=== PATIENT | female | born 1960 | race Caucasian/White ===

== ENCOUNTER → 2020-03-27 14:33 | Outpatient (CLI) | payer BC, SELFPAY ==
[2020-03-27] MEDS: COVID-19 VACC #1, MRNA(MOD) 100 MCG/0.5 ML VIAL IM (14:39)
== END ==
PROVIDERS: PCP Nurse Practitioner; Visit Provider Internal Medicine
DX: Z23 Encounter for immunization (principal)
CPT/HCPCS: 0011A; 91301

== ENCOUNTER → 2020-04-24 14:32 | Outpatient (CLI) | payer BC, SELFPAY ==
[2020-04-24] MEDS: COVID-19 VACC #2, MRNA(MOD) 100 MCG/0.5 ML VIAL IM (14:39)
== END ==
PROVIDERS: PCP Nurse Practitioner; Visit Provider Internal Medicine
DX: Z23 Encounter for immunization (principal)
CPT/HCPCS: 0012A; 91301

== ENCOUNTER 2024-06-17 02:40 | Emergency (ER) | payer BC, SELFPAY ==
[2024-06-17] VITALS (8 sets, daily range): BP systolic 173–178; BP diastolic 70–89; PULSE 105–119; RESP 18; TEMP 37.1; O2SAT 96–100; BMI 30.5
--- NOTE | 2024-06-17 03:05 | ED.GENADULT ---
HPI - General Adult General Chief complaint: Upper Respiratory Symptoms Stated complaint: stuff came up wile sleeping HX Asthma Time Seen by Provider: 06/17/24 02:49 Source: patient Mode of arrival: Ambulatory History of Present Illness HPI narrative: 63-year-old woman with a history of asthma, hypertension, depression presents after having an aspiration episode while sleeping. She describes having some spicy food bit of reflux when she went to bed, noticed a bit of reflux and acid taste in her mouth and then had severe coughing spasms such that she could not even use her inhaler. She comes in afraid to speak because it triggers the cough, she is slightly tachycardic, anxious but saturations on room air are 100%. She states she was in her usual state of good health prior to going to bed this evening, no recent fevers, cough, chills no asthma exacerbations no chest pain or palpitations no nausea vomiting or diarrhea. She blames this ?all on the nachos?. Related Data Home Medications Medication Instructions Recorded Confirmed magnesium 1 tab PO .QD 03/20/19 omega 2-lro-ynq-fish oil 1,000 mg 1 cap PO BID 03/20/19 03/20/19 (120 mg-180 mg) capsule (Fish Oil) vitamin K2 40 mcg tablet 40 mcg PO DAILY 03/20/19 03/20/19 albuterol sulfate 90 mcg/actuation 2 puff inhalation Q4HR PRN 06/17/24 06/17/24 aerosol inhaler Shortness Of Breath Or Wheezing amlodipine 10 mg tablet 10 mg PO DAILY 06/17/24 06/17/24 aspirin 81 mg tablet,delayed 81 mg PO DAILY 06/17/24 06/17/24 release fluoxetine 40 mg capsule 40 mg PO DAILY 06/17/24 06/17/24 fluticasone 250 mcg-salmeterol 50 1 ea inhalation BID 06/17/24 06/17/24 mcg/dose blistr powdr for inhalation hydrochlorothiazide 25 mg tablet 25 mg PO DAILY 06/17/24 06/17/24 lisinopril 40 mg tablet 40 mg PO DAILY 06/17/24 06/17/24 Previous Rx's Medication Instructions Recorded potassium chloride 20 mEq 20 meq PO BID #60 tabs 12/04/20 tablet,extended release Allergies Allergy/AdvReac Type Severity Reaction Status Date / Time No Known Drug Allergies Allergy Unverified 03/20/19 11:37 Review of Systems Review of Systems Narrative: Pertinent positive and negative findings as per HPI Patient History Medical History (Updated 06/17/24 @ 03:53 by Shaye Sebastian MD) ADHD Chicken pox (~1972) Depression with anxiety Asthma Seasonal allergies Obesity (BMI 30.0-34.9) Hypertension Surgical History Anesthesia Status post breast reduction (~1994) Family History Father Respiratory failure Mother History of heart disease Hypertension Hyperlipidemia Smoking Status: Former smoker Alcohol type: wine Exam Initial Vital Signs Initial Vital Signs: Vital Signs Temperature 98.7 F 06/17/24 02:56 Pulse Rate 119 H 06/17/24 02:56 Respiratory Rate 18 06/17/24 02:56 Blood Pressure 178/89 H 06/17/24 02:56 Pulse Oximetry 98 06/17/24 02:56 Oxygen Delivery Method Room Air 06/17/24 02:56 General: Healthy appearing, anxious, whispering and trying not to take a deep breath but no accessory muscle use HEENT: Moist mucous membranes, normal sclera with reactive pupils, Respiratory: Lungs with minor scattered wheeze in the upper lung garcia, no rhonchi, Full and symmetrical air movement Cardiac: Tachycardic but otherwise Regular rate and rhythm no murmurs no bruits Abdomen: Soft, nontender, no rebound or guarding, no flank pain Skin: Warm and dry, no rashes Neurologic: Grossly neurologically intact with no obvious asymmetries or abnormalities Extremities: No trauma, well perfused Psych: Cooperative, appropriate insight and affect Course Vital Signs Vital signs: Vital Signs - 8 hr 06/17/24 02:56 Temperature 98.7 F Pulse Rate 119 H Respiratory Rate 18 Blood Pressure 178/89 H Pulse Oximetry 98 Oxygen Delivery Method Room Air Medical Decision Making [facility] Narrative Medical decision making narrative: CC: Aspiration episode this evening Complicating co-morbidities: Nachos heavily seasoned with tacos seasoning prior to going to bed, mild intermittent asthma, hypertension Data collected from: patient Differential considered: Acute coronary syndrome, complete aspiration, severe asthma attack, pneumothorax Exam documented above, pertinent findings include: Patient is anxious, she is still moving air well free to take a deep breath because it triggers coughing reflex. She is mildly tachycardic but no murmurs are appreciated Lab Test results independently reviewed as above. Pertinent findings: CBC is unremarkable Chemistries are reassuring. No acute renal dysfunction, slightly elevated ALT at 41 and alk-phos at 158 Troponin is unremarkable Independently reviewed EKG: Sinus tachycardia at a rate of 107 with nonspecific T-wave changes but no acute ischemia Imaging studies independently reviewed: No acute infiltrates, pulmonary nodule in the left chest Treatments: DuoNeb, Solu-Medrol, fluids Discussion: 63-year-old woman has what seems like a aspiration episode triggered a significant laryngospasm episode. She has responded nicely to DuoNeb, fluids and Solu-Medrol. Workup does not suggest alternate explanation for her symptoms such as pneumothorax, pulmonary infiltrate, acute coronary syndrome, acute congestive heart failure. We discussed laryngospasm, reflux, avoiding foods that are going to cause reflux close to bedtime. She came in with her albuterol metered-dose inhaler but has never used a spacer with it. Spacer and spacer teaching were provided today Discharge Plan Departure Patient Disposition: Home Clinical Impression: Laryngospasm Acid reflux Qualifiers: Esophagitis presence: esophagitis presence not specified Qualified Code(s): K21.9 - Gastro-esophageal reflux disease without esophagitis Mild intermittent asthma Qualifiers: Asthma complication type: uncomplicated Qualified Code(s): J45.20 - Mild intermittent asthma, uncomplicated Activity Restrictions/Additional Instructions: Thank you for coming in today It is terrifying when you can not breathe. It sounds like you had a little bit of acid reflux with a small amount of acid getting into the upper portion of your lungs which caused severe spasm in the upper part of your lungs. I did look for alternative explanations such as heart attack or heart attack like syndrome, collapsed lung, pneumonia and your remaining workup was quite reassuring In the emergency department you were given a DuoNeb to help reduce some of the upper airway inflammation. A L of fluid, steroids and were provided with a spacer so that your metered-dose inhaler albuterol can be more effective for you There was nothing further that you need to do at this time. If you find that you are getting worse or develop any new symptoms, please feel free to return to the emergency department for further evaluation. Prescriptions: No Action potassium chloride 20 mEq tablet extended release 20 meq PO BID Qty: 60 0RF Rx Instructions: Fasting labs due prior to next refill. omega 9-gwk-azm-fish oil [Fish Oil] 1,000 mg (120 mg-180 mg) capsule 1 cap PO BID magnesium 1 tab PO .QD vitamin K2 40 mcg tablet 40 mcg PO DAILY fluoxetine 40 mg capsule 40 mg PO DAILY fluticasone propion-salmeterol 250-50 mcg/dose blister with device 1 ea inhalation BID amlodipine 10 mg tablet 10 mg PO DAILY hydrochlorothiazide 25 mg tablet 25 mg PO DAILY albuterol sulfate 90 mcg/actuation HFA aerosol inhaler 2 puff inhalation Q4HR PRN (Reason: Shortness Of Breath Or Wheezing) aspirin 81 mg tablet,delayed release (DR/EC) 81 mg PO DAILY lisinopril 40 mg tablet 40 mg PO DAILY Referrals: Salena Mancini PA-C [Primary Care Provider] - Stand Alone Forms: Patient Portal/API/Survey
--- NOTE | 2024-06-17 03:09 | DI.RAD.S_ITS ---
PROCEDURE: XR CHEST 1V INDICATIONS: cough TECHNIQUE: One view of the chest was acquired. COMPARISON: None. FINDINGS: Surgical changes and devices: None. Lungs and pleura: Low lung volumes without focal consolidation. No pleural effusions or pneumothorax. Left lower lobe 5 mm pulmonary granuloma. Mediastinum: Mediastinal contours appear normal. Heart size is normal. Bones and chest wall: No suspicious bony lesions. Overlying soft tissues appear unremarkable. IMPRESSION: No acute cardiothoracic process. Findings are concordant with the preliminary report. Dictated by: Gavino Castillo M.D. on 06/17/2024 at 7:40 Approved by: Gavino Castillo M.D. on 06/17/2024 at 7:41
[2024-06-17] MEDS: ALBUTEROL/IPRATROPIUM 3 ML AMPUL INH (03:15)
[2024-06-17] MEDS: methylPREDNISolone 125 MG/2 ML VIAL IV (03:22)
[2024-06-17] MEDS: SODIUM CHLORIDE 0.9% 1,000 ML 1000 ML IV (03:22)
[2024-06-17 03:25] LABS: Add Manual Diff / Slide Review NO; Basophils Absolute Auto 100 /uL (0-100); Basophils Percent Auto 0.6 % (0-2); Eosinophils Absolute Auto 300 /uL (0-450); Eosinophils Percent Auto 2.8 % (2-4); Hematocrit 43.3 % (36-46); Hemoglobin 14.9 g/dL (12.0-16.0); Lymphocytes Absolute Auto 2600 /uL (1100-4500); Lymphocytes Percent Auto 25.1 % (25-40); Mean Corpuscular HGB Conc 34.5 % (30-36); Mean Corpuscular Hemoglobin 31.6 PG (26-34); Mean Corpuscular Volume 91.6 fL (80-100); Monocytes Absolute Auto 800 /uL (0-900); Monocytes Percent Auto 7.4 % (3-14); Neutrophils Absolute Auto 6700 /uL (1500-7000); Neutrophils Percent Auto 64.1 % (50-75); Platelet Count 208 X10^3/uL (150-400); Red Blood Cell Count 4.72 X10^6/uL (4.0-5.2); Red Cell Distribution Width 13.6 % (11.6-14.8); White Blood Cell Count 10.5 X10^3/uL (4.5-11.0)
--- NOTE | 2024-06-17 03:32 | EKG_ITS ---
[address] [address] Test Date: 2024-06-17 Pat Name: Bud Ko Department: [facility] Room: Gender: Female Manager Ethics: PDV : 1960 Requested By: Order Number: [id number] Reading MD: Cecilio Javier MD Measurements Intervals Coleman Rate: 117 P: 43 NV: 152 QRS: 13 QRSD: 82 T: 30 QT: 352 QTc: 491 Interpretive Statements Sinus tachycardia Low voltage QRS Nonspecific ST abnormality Electronically Signed On 06-17-2024 8:25:30 PDT by Cecilio Javier MD
[2024-06-17 03:35] LABS: Alanine Aminotransferase 41 IU/L (<35); Albumin 4.4 g/dL (3.5-5.0); Albumin Globulin Ratio 1.8 (1.0-2.8); Alkaline Phosphatase 158 U/L (38-126); Aspartate Aminotransferase 26 IU/L (14-36); BUN Creatinine Ratio 28.6 (6-22); Bilirubin Total 0.4 mg/dL (0.2-1.3); Blood Urea Nitrogen 18 mg/dL (7-17); Calcium 9.8 mg/dL (8.4-10.2); Carbon Dioxide 22 mmol/L (22-32); Chloride 107 mmol/L (98-107); Estimated Glomerular Filt Rate > 60 mL/min (>60); Globulin 2.4 g/dL (1.7-4.1); Glucose 186 mg/dL (80-110); HEMOLYSIS < 15 (0-50); Potassium 3.4 mmol/L (3.4-5.1); Sodium 139 mmol/L (137-145); Total Protein 6.8 g/dL (6.3-8.2)
[2024-06-17 03:47] LABS: Troponin I < 0.012 ng/mL (0.01-0.034)
[2024-06-17] MEDS: AMLODIPINE 5 MG TABLET PO (04:18)
== END 2024-06-17 04:56 | disposition home or self-care (01) ==
PROVIDERS: Emergency Provider Emergency Medicine; PCP Physician Assistant
DX: J38.5 Laryngeal spasm (principal); K21.9 Gastro-esophageal reflux disease without esophagitis; J45.20 Mild intermittent asthma, uncomplicated; R00.0 Tachycardia, unspecified; I10 Essential (primary) hypertension; Z87.891 Personal history of nicotine dependence
CPT/HCPCS: 71045; 80053; 84484; 85025; 93005; 94640; 96374; 99284; J2919